=== PATIENT | female | born 1975 | race Caucasian/White ===

== ENCOUNTER → 2016-12-21 | Outpatient (CLI) | payer BC ==
[~2016-12-21] MED LIST: BCPILLS PO; BYS/5 PO; DULO60CA44 PO
--- NOTE | 2016-12-21 11:12 | DIAGNOSTIC IMAGING REPORT ---
GALLBLADDER-ABD LIMITED HISTORY: 41 years-old Female R10.13 Epigastric painLeft message with appt date and time. 10/ acute epigastric abdominal pain. Initial exam. COMPARISON: Ultrasound 03/08/2006, hepatobiliary scan 04/13/2006 TECHNIQUE: Multiple real-time sonographic images of the abdominal right upper quadrant were obtained assessing grayscale appearance and color flow FINDINGS: Pancreas is partially obscured by bowel gas. Imaged portions of the pancreatic parenchyma are unremarkable. Study is also limited secondary to patient body habitus. Unchanged appearance of a hyperechoic ovoid lesion of the right hepatic lobe, 0.9 cm without internal vascularity documented suggesting hemangioma. Liver is otherwise unremarkable. No intrahepatic biliary ductal dilation. Gallbladder is partially collapsed with wall measuring 0.3 cm. No shadowing cholelithiasis or pericholecystic fluid collections. Common bile duct measures 0.5 cm, normal. Imaged portions of the right kidney are unremarkable without hydronephrosis. IMPRESSION: 1. Partially collapsed gallbladder lumen without cholelithiasis or sonographic evidence of acute cholecystitis. 2. No biliary ductal dilation. 3. Unchanged appearance of a 0.9 cm round echogenic lesion of the right hepatic lobe suggesting hepatic hemangioma, unchanged in size and appearance from study dated 03/08/2006. The above report was generated using voice recognition software. It may contain grammatical, syntax or spelling errors. Electronically signed by: Olivier Guerin M.D. 12/21/2016 11:11 AM Dictated Date/Time: 12/21/2016 11:07 AM
== END | disposition home or self-care (01) ==
LOC: C.ULTR 10:36
PROVIDERS: ATTEND Physician Assistant Medical
DX: R10.13 Epigastric pain (principal); K82.9 Disease of gallbladder, unspecified; K76.9 Liver disease, unspecified

== ENCOUNTER → 2017-01-04 | Outpatient (CLI) | payer BC ==
[~2017-01-04] MED LIST changes: +SINCALIDE INJ 2.2 MCG in SODIUM CHLORIDE 0.9% 100ML 100 ML IV ONE
--- NOTE | 2017-01-04 12:44 | DIAGNOSTIC IMAGING REPORT ---
HEPATOBILIARY EF IMAGING CLINICAL HISTORY: 41 years-old Female presenting with R10.13 Epigastric pain, EJECTION FRACTION. TECHNIQUE: Dynamic imaging of the gallbladder was initiated 65 minutes after administration of 5.5 mCi of technetium 99m Choletec. Imaging was obtained every 5 minutes over a span of 40 minutes. 2.2 mcg of sincalide was injected 5 minutes prior to the start of imaging. The gallbladder ejection fraction was calculated. COMPARISON: 04/13/2006 and ultrasound from 12/21/2016. FINDINGS: The hepatobiliary scan shows normal normal uptake of radiotracer by the liver with filling of the gallbladder at the start of imaging. Expected excretion of radiotracer into the bowel is appreciable. However, gallbladder ejection fraction measured at 15% (normal greater than 50%). IMPRESSION: 1. Abnormal gallbladder ejection fraction, which suggests chronic cholecystitis. Patent common duct. Electronically signed by: Madhu Wang M.D. 01/04/2017 12:43 PM Dictated Date/Time: 01/04/2017 12:39 PM
== END | disposition home or self-care (01) ==
LOC: C.NUCL 10:12
PROVIDERS: ATTEND Physician Assistant Medical
DX: R10.13 Epigastric pain (principal); R93.2 Abnormal findings on diagnostic imaging of liver and biliary tract

== ENCOUNTER → 2017-02-04 | Day surgery (SDC) | payer BC ==
[2017-01-26 10:48] VITALS: BMI 49.0
--- NOTE | 2017-01-26 11:18 | PAT Medication Instructions ---
Service Date Jan 26, 2017. Current Home Medication List Acetaminophen (Tylenol), 1,000 MG PO PRN Adapalene (Differin), 1 APPLN TOP 2-3X WEEK Control Pills ( Control Pills), 1 TAB PO QAM Hmycokymty-Mvxnbattjuaoq-Nojkn (Butalbital/APAP/Caffeine 50-300-40 mg), 1 TAB PO PRN Cetirizine (Zyrtec), 10 MG PO QAM Cyclobenzaprine Hcl (Flexeril), 5 MG PO HS PRN for RN Famotidine (Pepcid), 20 MG PO QAM Lorazepam (Ativan), 0.5 MG PO PRN Multivitamin (Multivitamin), 1 TAB PO QAM Nebivolol Hcl (Bystolic), 5 MG PO HS Rizatriptan Benzoate (Maxalt), 10 MG PO UD PRN for RN Tramadol (Ultram), 50 MG PO Q8H PRN for Pain Triamcinolone Acetonide (Nasal (Nasacort Allergy 24Hr), 1 SPRAYS INTNAS HS Vortioxetine HBr (Trintellix), 10 MG PO QAM Medication Instructions For Your Scheduled Surgery - Hold the following medications 24 hours prior to surgery: Adapalene (Differin), 1 APPLN TOP 2-3X WEEK - Hold the following medications the morning of surgery: Cetirizine (Zyrtec), 10 MG PO QAM Multivitamin (Multivitamin), 1 TAB PO QAM Cyclobenzaprine Hcl (Flexeril), 5 MG PO HS PRN for RN Clnplxoowg-Cfrolytcmmuef-Cgbrc (Butalbital/APAP/Caffeine 50-300-40 mg), 1 TAB PO PRN - Take the following medications the morning of surgery with a sip of water: Control Pills ( Control Pills), 1 TAB PO QAM Vortioxetine HBr (Trintellix), 10 MG PO QAM Tramadol (Ultram), 50 MG PO Q8H PRN for Pain (if needed) Famotidine (Pepcid), 20 MG PO QAM Rizatriptan Benzoate (Maxalt), 10 MG PO UD PRN for RN (if needed) Lorazepam (Ativan), 0.5 MG PO PRN (if needed) Acetaminophen (Tylenol), 1,000 MG PO PRN (if needed, can be taken up to four hours before surgery) - Take the following medications as scheduled the night before surgery: Nebivolol Hcl (Bystolic), 5 MG PO HS Triamcinolone Acetonide (Nasal (Nasacort Allergy 24Hr), 1 SPRAYS INTNAS HS Tramadol (Ultram), 50 MG PO Q8H PRN for Pain (if needed) Rizatriptan Benzoate (Maxalt), 10 MG PO UD PRN for RN (if needed) Cyclobenzaprine Hcl (Flexeril), 5 MG PO HS PRN for RN (if needed) Lorazepam (Ativan), 0.5 MG PO PRN (if needed) Acetaminophen (Tylenol), 1,000 MG PO PRN (if needed) If you have any questions please call us at [phone] or [phone] or [phone]
[2017-01-26 12:28] LABS: BASO % 0.4 %; BASO ABS # 0.02 K/uL (0-0.2); COMPLETE YES; EOS % 1.1 %; HEMATOCRIT 41.2 % (37-47); IG% 0.2 %; LYMPH % 31.8 %; LYMPH ABS # 1.75 K/uL (1.2-3.4); MEAN CELL VOLUME 88.8 fL (80-100); MEAN CORPUSCULAR HEMOGLOBIN 30.6 pg (25-34); MEAN CORPUSCULAR HGB CONC 34.5 g/dl (32-36); MEAN PLATELET VOLUME 11.7 fL (7.4-10.4); MONO % 7.4 %; NEUT % 59.1 %; PLATELET COUNT 173 K/uL (130-400); RED BLOOD COUNT 4.64 M/uL (4.2-5.4); WHITE BLOOD COUNT 5.51 K/uL (4.8-10.8)
[2017-01-26 12:32] LABS: BUN/CREATININE RATIO 15.1 (10-20); CALCIUM 8.7 mg/dl (8.5-10.1); CREATININE 0.98 mg/dl (0.60-1.20); POTASSIUM 3.8 mmol/L (3.5-5.1)
[~2017-02-04] VITALS: Ht 157.5 cm; Wt 121.5 kg
[~2017-02-04] MED LIST changes: +ACET-1256 PO; +ADAP0.1G8 TOP; +ATROPINE SULFATE 0.1 MG/ML 5ML SYR IV PRN; +BUPIVACAINE 0.5 % 5 MG/1 ML MPF 30ML VIAL ONE; +BUTA1CAP20 PO; -BYS/5 PO; +CETI10TA84 PO; +CLINDAMYCIN IV 900 MG in DEXTROSE 5% 50ML IV SCH; +CYCL5TAB PO; +DEXAMETHASONE SOD INJ 4 MG/ML VIAL ONE; -DULO60CA44 PO; +EpHEDrine SULFATE INJ 50 MG/ML AMP IV PRN; +FAMO20TA11 PO; +FENTANYL CITRATE INJ 50 MCG/1 ML 2 ML VIAL ONE; +GLYCOPYRROLATE INJ 0.2 MG/ML VIAL ONE; +KETOROLAC TROMETHAMINE 30 MG/ML VIAL ONE; +LABETALOL HCL IV 5 MG/ML 20ML IV ONE; +LACTATED RINGER'S 1000ML 1,000 ML IV SCH; +LARYING-O-JET KIT (LTA) ONE; +LIDOCAINE HCL 2% 2 ML VIAL (20MG/ML) ONE; +LORA-741 PO; +MIDAZOLAM HCL 1 MG/ML 2ML VIAL ONE; +MULT-506 PO; +NEBI10TA2 PO; +NEOSTIGMINE METHYLSULFATE 5 MG/5 ML SYR ONE; +ONDA4TAB46 PO; +ONDANSETRON INJ 2 MG/ML 2 ML VIAL IV PRN; +ONDANSETRON INJ 2 MG/ML 2 ML VIAL ONE; +OXYC-57 PO; +OXYCODONE/ACETAMINOPHEN 5-325 TAB PO PRN; +PROMETHAZINE HCL INJ 12.5 MG in SODIUM CHLORIDE 0.9% 50ML 50 ML IV PRN; +PROPOFOL IV EMULSION 10 MG/ML 20 ML VIAL IV ONE; +RIZA10TA18 PO; +ROCURONIUM BROMIDE 10 MG/ML 5 ML VIAL IV ONE; -SINCALIDE INJ 2.2 MCG in SODIUM CHLORIDE 0.9% 100ML 100 ML IV ONE; +SODIUM CHLORIDE 0.9% 1000ML 1,000 ML IV SCH; +TRAM-10 PO; +TRIA1SPR4 INTNAS; +VORT10TA12 PO
[2017-02-04 07:30] VITALS: BP 123/83; PULSE 69; TEMP 36.8; O2SAT 97; Ht 157.5 cm; Wt 121.5 kg
--- NOTE | 2017-02-04 08:21 | History & Physical Bridge Note ---
H&P Re-Evaluation Bridge Note: I have examined the patient, reviewed the History & Physical and in the interval since the performance of the History & Physical I have noted the following changes of clinical significance: No changes noted
--- NOTE | 2017-02-04 09:28 | [facility] Post Operative Brief Note ---
Immediate Operative Summary Operative Date Feb 04, 2017. Pre-Operative Diagnosis biliary dyskinesia Post-Operative Diagnosis biliary dyskinesia Procedure(s) Performed Laparoscopic Cholecystectomy Surgeon Dr. Singh Boateng Card Game Operator Surgeon(s) Susan Wilde PA-C Estimated Blood Loss 4ml Findings Window of safety obtained, cystic duct and artery doubly clipped and divided. Specimens Permanent Solution: A. Gallbladder Drains None Anesthesia GETA Complication(s) None Disposition Recovery Room / PACU
--- NOTE | 2017-02-04 09:31 | [facility] Operative Report ---
Operative Report Operative Date Feb 04, 2017. Pre-Operative Diagnosis biliary dyskinesia Post-Operative Diagnosis biliary dyskinesia Procedure(s) Performed Laparoscopic cholecystectomy Surgeon Dr. Singh Boateng [employer] Teacher Surgeon(s) Susan Wilde PA-C Estimated Blood Loss 4ml Findings Window of safety obtained, cystic duct and artery doubly clipped and divided. Specimens Permanent Solution: A. Gallbladder Drains None Anesthesia GETA Complication(s) None Disposition Recovery Room / PACU Indications 41-year-old female with biliary dyskinesia, plan for laparoscopic cholecystectomy with possible cholangiogram. The risks of the procedure were discussed, all questions were answered, and the patient agreed to proceed with surgery as planned. Description of Procedure The patient was properly identified, consented, and taken to the operating room where she was placed in the supine position. General endotracheal anesthesia was induced. SCDs and a safety belt were placed. Preoperative antibiotics were administered. The patient's abdomen was prepped and draped in the standard sterile fashion. A surgical timeout was performed and all parties were in agreement that this was the correct patient and procedure to be performed and we continued as planned. An incision was made superior and to the left of the umbilicus overlying the rectus muscle and the Veress needle was inserted. Saline drop test confirmed entry into the peritoneum. The abdomen was insufflated with carbon dioxide which the patient tolerated without incident. The abdomen was then entered using the Optiview technique and a 5 mm trocar. The laparoscope was inserted and no damage from initial trocar or Veress needle placement was noted, no gross abnormalities were noted within the 4 quadrants of the abdomen. An 11 mm port was placed in the subxiphoid position and two 5 mm ports were then placed in the right subcostal position. The patient was placed in reverse Trendelenburg position and rotated towards the left. The dome of the gallbladder was retracted towards the left upper quadrant and the infundibulum was retracted toward the right lower quadrant revealing Calot' s triangle. Peritoneal attachments were taken down with electrocautery and blunt dissection. The cystic duct and artery were circumferentially dissected. A window of safety was obtained showing the cystic duct entering the gallbladder with no aberrant structures noted. The cystic duct and artery were doubly clipped and divided. The gallbladder was then lifted off the gallbladder fossa with electrocautery. The gallbladder was placed in an Endo Catch bag and removed through the umbilical port site. The right upper quadrant was irrigated and hemostasis was found to be good. 5 mm trochars were removed under direct visualization and the abdomen was allowed to collapse. The wound was irrigated, and the skin of all ports was closed with 4-0 Monocryl subcuticular sutures. Dermabond was placed over the wounds. The physician's librarian assistant was critical and entry into the abdomen, exposure, retraction, removal of the gallbladder, and closure. The patient was extubated in the operating room and taken to the PACU where she recovered without apparent incident. All sponge, instrument and needle counts were correct at the conclusion of the procedure. The patient tolerated the procedure well. I attest to the content of the Intraoperative Record and any orders documented therein. Any exceptions are noted below.
[2017-02-04] MEDS: FENTANYL CITRATE INJ 50 MCG/1 ML 2 ML VIAL IV PRN ×5 (09:56→10:11)
--- NOTE | 2017-02-04 09:58 | Discharge Instructions ---
Discharge Instructions Date of Service Feb 04, 2017. Admission Reason for Admission: Biliary Dyskinesia Discharge Discharge Diagnosis / Problem: Biliary Dyskinesia Discharge Goals Goal(s): Decrease discomfort, Improve function Activity Recommendations Activity Limitations: as noted below Lifting Limitations: no more than 10 pounds Exercise/Sports Limitations: until after follow-up appointment May Resume Sexual Activity: after follow-up appointment Shower/Bathe: tomorrow Driving or Machine Use: resume 1 day after discharge . Instructions / Follow-Up Instructions / Follow-Up Please follow-up with Dr. Boateng in the General Surgery office in 1-2 weeks. Please call the office at [phone] to make a follow-up appointment if you do not have one already. Please call the office with any questions or concerns. Current Hospital Diet Patient's current hospital diet: Discharge Diet Recommended Diet: Regular Diet Procedures Procedures Performed: Laparoscopic Cholecystectomy Pending Studies Studies pending at discharge: yes List of pending studies: Pathology report. Medical Emergencies . Who to Call and When: Medical Emergencies: If at any time you feel your situation is an emergency, please call 911 immediately. . Non-Emergent Contact Non-Emergency issues call your: Primary Care Provider, Surgeon Call Non-Emergent contact if: temperature is above 101.5, your pain is not controlled, wound has increased drainage, wound has increased redness . "Provider Documentation" section prepared by Susan Wilde. . VTE Core Measure Inpt VTE Proph given/why not?: SCD's [place] Drug Monitoring Program Search Results: patient reviewed within database, no issues identified
[2017-02-04] MEDS: HYDROmorphone INJ 1 MG/ML SYR IV PRN ×2 (10:15→10:22)
[2017-02-04 10:45] VITALS: BP 128/79; PULSE 92; TEMP 36.3; O2SAT 100
--- NOTE | 2017-02-04 10:47 | Anesthesiology Progress Note ---
Anesthesia Post Op Note Date & Time Feb 04, 2017 at 10:47 Vital Signs Pain Intensity: 4 Vital Signs Past 12 Hours Date Time Temp Pulse Resp B/P (MAP) Pulse Ox O2 Delivery O2 Flow Rate FiO2 02/04/17 10:40 36.3 56 12 131/77 99 Nasal Cannula 2 02/04/17 10:30 56 15 128/81 97 Nasal Cannula 2 02/04/17 10:20 54 18 145/86 100 Nasal Cannula 2 02/04/17 10:10 44 24 137/75 99 Nasal Cannula 2 02/04/17 10:00 59 12 142/109 100 Oxymask 10 02/04/17 09:50 67 18 133/95 100 Oxymask 10 02/04/17 09:44 36.4 73 16 157/108 96 Oxymask 10 02/04/17 07:30 36.8 69 18 123/83 (96) 97 Room Air Notes Mental Status: alert / awake / arousable, participated in evaluation Pt Amnestic to Procedure: Yes Nausea / Vomiting: adequately controlled Pain: adequately controlled Airway Patency, RR, SpO2: stable & adequate BP & HR: stable & adequate Hydration State: stable & adequate Anesthetic Complications: no major complications apparent
[2017-02-04 11:15] VITALS: BP 117/82; PULSE 78; TEMP 36.3; O2SAT 96
[2017-02-04 11:45] VITALS: BP 136/86; PULSE 54; TEMP 36.5; O2SAT 96
== END | disposition home or self-care (01) ==
LOC: C.ACU 06:54
PROVIDERS: ATTEND Surgery
DX: K81.1 Chronic cholecystitis (principal); K82.8 Other specified diseases of gallbladder; E66.9 Obesity, unspecified; I10 Essential (primary) hypertension; E66.01 Morbid (severe) obesity due to excess calories; F32.9 Major depressive disorder, single episode, unspecified; K21.9 Gastro-esophageal reflux disease without esophagitis; E55.9 Vitamin D deficiency, unspecified; Z87.891 Personal history of nicotine dependence; Z80.42 Family history of malignant neoplasm of prostate; Z82.49 Family history of ischemic heart disease and other diseases of the circulatory system

== ENCOUNTER → 2017-02-25 | Outpatient (CLI) | payer BC ==
[~2017-02-25] MED LIST changes: -ATROPINE SULFATE 0.1 MG/ML 5ML SYR IV PRN; -BUPIVACAINE 0.5 % 5 MG/1 ML MPF 30ML VIAL ONE; -CLINDAMYCIN IV 900 MG in DEXTROSE 5% 50ML IV SCH; +COEN30CA8; +DESV50TA PO; -DEXAMETHASONE SOD INJ 4 MG/ML VIAL ONE; -EpHEDrine SULFATE INJ 50 MG/ML AMP IV PRN; -FENTANYL CITRATE INJ 50 MCG/1 ML 2 ML VIAL ONE; +GARL1CAP6; -GLYCOPYRROLATE INJ 0.2 MG/ML VIAL ONE; -KETOROLAC TROMETHAMINE 30 MG/ML VIAL ONE; -LABETALOL HCL IV 5 MG/ML 20ML IV ONE; -LACTATED RINGER'S 1000ML 1,000 ML IV SCH; -LARYING-O-JET KIT (LTA) ONE; -LIDOCAINE HCL 2% 2 ML VIAL (20MG/ML) ONE; -MIDAZOLAM HCL 1 MG/ML 2ML VIAL ONE; -NEOSTIGMINE METHYLSULFATE 5 MG/5 ML SYR ONE; -ONDANSETRON INJ 2 MG/ML 2 ML VIAL IV PRN; -ONDANSETRON INJ 2 MG/ML 2 ML VIAL ONE; -OXYC-57 PO; -OXYCODONE/ACETAMINOPHEN 5-325 TAB PO PRN; +PRLSR20 PO; -PROMETHAZINE HCL INJ 12.5 MG in SODIUM CHLORIDE 0.9% 50ML 50 ML IV PRN; -PROPOFOL IV EMULSION 10 MG/ML 20 ML VIAL IV ONE; -ROCURONIUM BROMIDE 10 MG/ML 5 ML VIAL IV ONE; -SODIUM CHLORIDE 0.9% 1000ML 1,000 ML IV SCH; +TRIATAB3 PO
[2017-02-25 17:06] LABS: BASO % 0.4 %; BASO ABS # 0.03 K/uL (0-0.2); EOS % 0.6 %; EOS ABS # 0.04 K/uL (0-0.5); HEMATOCRIT 44.5 % (37-47); HEMOGLOBIN 15.3 g/dL (12.0-16.0); IG# 0.01 K/uL (0.00-0.02); LYMPH % 25.3 %; LYMPH ABS # 1.69 K/uL (1.2-3.4); MEAN CELL VOLUME 89.2 fL (80-100); MEAN CORPUSCULAR HEMOGLOBIN 30.7 pg (25-34); MEAN CORPUSCULAR HGB CONC 34.4 g/dl (32-36); MEAN PLATELET VOLUME 12.5 fL (7.4-10.4); MONO % 7.9 %; MONO ABS # 0.53 K/uL (0.11-0.59); NEUT % 65.7 %; NEUT ABS # 4.38 K/uL (1.4-6.5); PLATELET COUNT 202 K/uL (130-400); RED CELL DISTRIBUTION WIDTH CV 12.7 % (11.5-14.5); RED CELL DISTRIBUTION WIDTH SD 40.8 fL (36.4-46.3); WHITE BLOOD COUNT 6.68 K/uL (4.8-10.8)
[2017-02-25 18:51] LABS: ALBUMIN 3.8 gm/dl (3.4-5.0); ALT/SGPT 65 U/L (12-78); AST/SGOT 32 U/L (15-37); BLOOD UREA NITROGEN 12 mg/dl (7-18); CALCIUM 9.3 mg/dl (8.5-10.1); CARBON DIOXIDE 24 mmol/L (21-32); CREATININE 1.08 mg/dl (0.60-1.20); GLUCOSE 85 mg/dl (70-99); POTASSIUM 4.2 mmol/L (3.5-5.1); SODIUM 136 mmol/L (136-145)
[2017-02-25 19:02] LABS: ALKALINE PHOSPHATASE 70 U/L (45-117)
== END | disposition home or self-care (01) ==
LOC: C.LABBFT 13:15
PROVIDERS: ATTEND Internal Medicine
DX: Z98.890 Other specified postprocedural states (principal); I10 Essential (primary) hypertension

== ENCOUNTER → 2017-04-16 | Outpatient (CLI) | payer BC ==
[~2017-04-16] MED LIST changes: -COEN30CA8; -DESV50TA PO; -GARL1CAP6; -PRLSR20 PO; -TRIATAB3 PO
--- NOTE | 2017-04-19 08:08 | MAMMOGRAPHY REPORT ---
BILATERAL DIGITAL SCREENING MAMMOGRAM TOMOSYNTHESIS WITH CAD: 04/16/2017 CLINICAL HISTORY: Routine screening. Patient has no complaints. TECHNIQUE: Breast tomosynthesis in addition to standard 2D mammography was performed. Current study was also evaluated with a Computer Aided Detection (CAD) system. COMPARISON: Comparison is made to exams dated: 04/26/2015 mammogram, 04/02/2014 ultrasound, 04/02/2014 zayra mogram, 03/23/2014 mammogram, 10/13/2011 ultrasound, and 10/13/2011 mammogram - [facility]ter. BREAST COMPOSITION: The tissue of both breasts is almost entirely fatty. FINDINGS: There is stable focal asymmetry in the left upper outer quadrant, and a stable benign circu mscribed mass in the 6:00 right breast. No suspicious mass, architectural distortion or cluster of m icrocalcifications is seen. IMPRESSION: ACR BI-RADS CATEGORY 1: NEGATIVE There is no mammographic evidence of malignancy. A 1 year screening mammogram is recommended. The pa tient will receive written notification of the results. Approximately 10% of breast cancers are not detected with mammography. A negative mammographic report should not delay biopsy if a clinically suggestive mass is present. Deb Hastings M.D. ay/:04/16/2017 16:59:26 Paleobotanist: Emily DICKSON)(M), [facility] letter sent: Normal 1/2 BI-RADS Code: ACR BI-RADS Category 1: Negative
== END | disposition home or self-care (01) ==
LOC: C.MAMM 13:40
PROVIDERS: ATTEND Internal Medicine
DX: Z12.31 Encounter for screening mammogram for malignant neoplasm of breast (principal)

== ENCOUNTER → 2017-04-20 | Outpatient (CLI) | payer BC | END | disposition home or self-care (01) | LOC: C.LABSPEC 12:56 | PROVIDERS: ATTEND Internal Medicine | DX: R19.7 Diarrhea, unspecified (principal) ==

== ENCOUNTER → 2017-05-13 | Outpatient (CLI) | payer BC | END | disposition home or self-care (01) | LOC: C.LABBFT 12:01 | PROVIDERS: ATTEND Physician Assistant Medical | DX: R30.0 Dysuria (principal) ==

== ENCOUNTER → 2017-05-17 | Outpatient (CLI) | payer BC | END | disposition home or self-care (01) | LOC: C.LAB 16:59 | PROVIDERS: ATTEND Physician Assistant Medical | DX: R39.15 Urgency of urination (principal) ==

== ENCOUNTER → 2017-05-18 | Outpatient (CLI) | payer BC | END | disposition home or self-care (01) | LOC: C.PAPS 13:54 | PROVIDERS: ATTEND Obstetrics & Gynecology | DX: Z01.419 Encounter for gynecological examination (general) (routine) without abnormal findings (principal) ==

== ENCOUNTER → 2017-06-01 | Outpatient (CLI) | payer BC ==
[2017-06-01 17:00] LABS: BLOOD UREA NITROGEN 13 mg/dl (7-18); CALCIUM 9.4 mg/dl (8.5-10.1); CARBON DIOXIDE 30 mmol/L (21-32); CREATININE 1.13 mg/dl (0.60-1.20); GLUCOSE 108 mg/dl (70-99); POTASSIUM 3.4 mmol/L (3.5-5.1); SODIUM 137 mmol/L (136-145)
== END | disposition home or self-care (01) ==
LOC: C.LABBFT 14:02
PROVIDERS: ATTEND Physician Assistant Medical
DX: I10 Essential (primary) hypertension (principal)

== ENCOUNTER → 2017-07-01 | Outpatient (CLI) | payer BC ==
[2017-07-01 16:52] LABS: BLOOD UREA NITROGEN 10 mg/dl (7-18); CALCIUM 8.8 mg/dl (8.5-10.1); CARBON DIOXIDE 29 mmol/L (21-32); CREATININE 0.94 mg/dl (0.60-1.20); GLUCOSE 79 mg/dl (70-99); POTASSIUM 3.2 mmol/L (3.5-5.1); SODIUM 139 mmol/L (136-145)
== END | disposition home or self-care (01) ==
LOC: C.LABBFT 13:54
PROVIDERS: ATTEND Physician Assistant Medical
DX: E87.6 Hypokalemia (principal)

== ENCOUNTER 2023-03-24 19:03 | Inpatient (IN) ==
[2023-03-24] MEDS ORDERED: OPTIRAY 320 500ml IV ONE (20:39)
--- NOTE | 2023-03-24 21:36 | CT Scan Report ---
Exam(s): CT ABDOMEN + PELVIS With Contrast IV Amt: 84 ml optiray 320 EXAM: CT Abdomen and Pelvis With Intravenous Contrast CLINICAL HISTORY: Upper abdomen pain. TECHNIQUE: Axial computed tomography images of the abdomen and pelvis with intravenous contrast. CTDI is 27.74 mGy and DLP is 1214.85 mGy-cm. Automated exposure control was utilized for the study. A dose lowering technique was utilized adhering to the principles of ALARA. CONTRAST: Patient received 84 ml optiray 320 of IV contrast COMPARISON: No relevant prior studies available. FINDINGS: Lung bases: Unremarkable. No mass. No consolidation. ABDOMEN: Liver: Unremarkable. No mass. Gallbladder and bile ducts: Cholecystectomy. No ductal dilation. Pancreas: There is an ill-defined 3.1 x 7.1 x 3.6 cm pancreatic body mass. No ductal dilation. Spleen: Unremarkable. No splenomegaly. Adrenals: Unremarkable. No mass. Kidneys and ureters: Unremarkable. No solid mass. No hydronephrosis. Stomach and bowel: Unremarkable. No obstruction. No mucosal thickening. PELVIS: Appendix: Normal appendix. Bladder: Unremarkable. No mass. Reproductive: Unremarkable as visualized. ABDOMEN and PELVIS: Intraperitoneal space: Unremarkable. No free air. No significant fluid collection. Bones/joints: There are degenerative changes of the spine. No acute fracture. No dislocation. Soft tissues: Unremarkable. Vasculature: Mild atherosclerosis. No abdominal aortic aneurysm. Lymph nodes: Unremarkable. No enlarged lymph nodes. IMPRESSION: There is an ill-defined 3.1 x 7.1 x 3.6 cm pancreatic body mass. While this could represent acute pancreatitis, underlying malignancy is highly suspected and needs to be excluded. Electronically signed by: Cecelia Sheridan MD 03/24/23 21:35 PM
--- NOTE | 2023-03-24 21:48 | Emergency Department Note ---
Impression & Plan Recurrent upper abdominal pain, Mass of pancreas, Elevated amylase and lipase ED Provider Note Provider: Elio Brown MD DATE OF SERVICE: 03/24/2023 CHIEF COMPLAINT: Upper abdominal pain HISTORY OF PRESENT ILLNESS: Patient is a 47-year-old female past medical history of migraines, reflux and endometriosis presenting here stating she had some intermittent upper abdominal pain for the last several weeks although denies increased. Had some blood work earlier today. Denies any vomiting or diarrhea. No trauma reported. Prior hysterectomy. Has tried famotidine and Nexium and Gaviscon without real improvement of abdominal discomfort. Again worsened today. Some nausea at times. Has lost weight working with the weight loss clinic over the past year about 30 pounds. No fevers. Denies any chest pain. PAST MEDICAL HISTORY: As noted above MEDICATIONS: Reviewed home medication list SOCIAL HISTORY: Non-smoker PHYSICAL EXAM: GENERAL: alert and oriented in no acute distress on stretcher fatigued and appears Head: normocephalic and atraumatic EYES: No injection, discharge or icterus. NECK: Trachea midline. ENT: Mucous membranes pink and moist. LUNGS: Airway patent. No retractions or tachypnea HEART: Regular rate and rhythm. No chest wall tenderness ABDOMEN: Soft with some slight upper abdominal tenderness. No Marquez sign. SKIN: Acyanotic, warm, dry, without rashes EXTREMITIES: Without swelling, tenderness or deformity NEUROLOGICAL: No focal deficits. No aphasia. No facial droop or slurred speech. EK beats. Normal sinus rhythm. No PVC or PAC. No acute ST segment elevation or depression with QTc 428 Patient's laboratory studies and imaging reviewed. Differential includes Appendicitis, ovarian cyst, ovarian torsion, ectopic , TOA, PID, infections, diverticulitis, UTI, obstruction, mesenteric ischemia, aortic pathology, inflammatory bowel disease, renal colic, PUD, pancreatitis, biliary pathology, hernia, volvulus, constipation, as well as other pathologies. IMPRESSION/MEDICAL DECISION MAKING: Presents with some mid upper abdominal discomfort. Blood work obtained here as well as EKG. Seems less likely be cardiac in nature. Blood work from earlier today Without significant leukocytosis or anemia. No evidence of significant electrolyte abnormality with some very mild hypokalemia 3.2. No signs of renal dysfunction. Lipase and amylase elevated. Will obtain LFTs and troponin for completeness however and these are both reassuring. CT scan of the abdomen pelvis was completed questioning ill-defined pancreatic body mass possibly pancreatitis but malignancy needs to be excluded per the radiology report. Given this discussed with the patient staying for further care and evaluation here. Hospitalist team contacted. DIAGNOSIS: Elevated lipase, pancreatic mass DISPOSITION: Hospitalist will evaluate Patient was agreeable with this plan. Past Med/Surg History Medical History (Updated 03/24/23 @ 22:03 by Elio Brown M.D.) Prepatellar bursitis of left knee Right knee DJD Routine gynecological examination Metatarsalgia Chronic pain of both feet Morbid obesity Endometriosis Herniated cervical disc occasional cervicalgia; no ROM limitations per pt Acid reflux occasional HTN (hypertension) Depression Anxiety Migraines Alopecia areata Benign connective tissue neoplasm Surgical History (Updated 07/17/22 @ 07:40 by Truman Marroquin DO) S/P laparoscopic hysterectomy 12/08/[address] Abraham History of ovarian cystectomy History of esophagogastroduodenoscopy (EGD) History of laparoscopy diagnostic- x5 H/O nasal septoplasty H/O tooth extraction Hx laparoscopic cholecystectomy History of cryosurgery Cervix Hx of biopsy Vulvar Family History Father Hypertension Grandfather (Paternal) Family hx of colon cancer Grandfather (Maternal) Prostate cancer Grandmother (Maternal) Hypothyroid Mother Hypothyroid Grandmother (Paternal) Cardiac disorder Myocardial infarction Other Depression Denies family history of Colon cancer Pancreatic cancer Ovarian cancer Breast cancer Bleeding disorder Uterine cancer Social History Smoking Status: Never smoker packs per day: 0.5; Second Hand Exposure: No; Do You Dip or Chew Tobacco: No; Hx Alcohol Use: Yes Alcohol type: wine and hard liquor Hx Substance Use: No Preferred Language: Turkish Communication Ability: Effective Visual Impairment: No Limitations Enrollment Processor Required: No Beliefs That Will Affect Care: None Current Living Situation: Spouse 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 Assistive Devices: None Allergies Allergies Allergy/AdvReac Type Severity Reaction Status Date / Time erythromycin base Allergy Intermediate HIVES,COLIT Verified 03/24/23 22:15 IS amlodipine AdvReac Intermediate TIRED AND Verified 03/24/23 22:15 DISORIENTED cefuroxime AdvReac Intermediate SEVERE Verified 03/24/23 22:15 DIARRHEA hydrochlorothiazide AdvReac Intermediate IMPAIRED Verified 03/24/23 22:15 KIDNEY FUNCTION lisinopril AdvReac Intermediate FATIGUE Verified 03/24/23 22:15 losartan AdvReac Intermediate TIRED AND Verified 03/24/23 22:15 COULDN'T FUNCTION triamterene AdvReac Intermediate FATIGUE Verified 03/24/23 22:15 Home Meds Home Medications Medication Instructions Recorded Confirmed coenzyme Q10 100 mg capsule 100 mg PO QAM 09/19/18 03/24/23 lorazepam 0.5 mg tablet 0.5 mg PO DAILY PRN anxiety 09/19/18 03/24/23 triamcinolone acetonide 55 mcg 1 spray intranasal PM 09/27/18 03/24/23 nasal spray aerosol (Nasacort) desvenlafaxine 100 mg 100 mg PO PM 02/12/20 03/24/23 tablet,extended release 24 hr cetirizine 10 mg tablet (Zyrtec) 10 mg PO HS 11/14/21 03/24/23 vitamin B complex [B PO 04/16/22 03/17/23 Complex-Vitamin B12] famotidine 20 mg tablet 20 mg PO QAM PRN 03/17/23 03/24/23 HEARTBURN/INDIGESTION phentermine 37.5 mg tablet 18.75 mg PO DAILY 03/24/23 03/24/23 ubrogepant 50 mg tablet (Ubrelvy) 50 mg PO PRN PRN Migraine Headache 03/24/23 03/24/23 Previous Rx's Medication Instructions Recorded carvedilol 12.5 mg tablet 12.5 mg PO BID #180 tabs 09/08/22 chlorthalidone 25 mg tablet 12.5 mg (1/2 x 25 mg) PO DAILY 90 09/08/22 days #45 tabs metronidazole 1 % topical gel 1 applic topical DAILY #60 grams 09/08/22 (Metrogel) fremanezumab-vfrm 225 mg/1.5 mL 225 mg (1.5 mL) subcut MONTHLY 30 10/14/22 subcutaneous auto-injector (Ajovy) days #45 mL potassium chloride 10 mEq 20 meq (2 x 10 mEq) PO BID Other 03/12/23 capsule,extended release #120 caps esomeprazole magnesium 40 mg 40 mg PO BID #60 caps 03/15/23 capsule,delayed release doxycycline hyclate 50 mg capsule 50 mg PO BID #60 caps 03/17/23 Results & Data (ED) Vital Signs Vital Signs - 24 hr 03/24/23 19:06 03/24/23 21:23 03/24/23 21:52 Temperature 37.0 C Temperature Source Temporal Artery Scan Pulse Rate 81 61 Pulse Rate [Right Finger] 68 Respiratory Rate 18 19 Respiratory Effort / Characteristics Non-Labored Spontaneous Non-Labored Spontaneous Respiratory Depth Normal Normal Respiratory Pattern Regular Blood Pressure 172/112 H Blood Pressure [Right Arm] 150/104 H Blood Pressure Mean 132 Blood Pressure Mean [Right Arm] 119 Blood Pressure Position Sitting Pulse Oximetry 99 97 Oxygen Delivery Method Room Air Room Air Sepsis Recent Fever Within 48 Hours No Sepsis New/Unexplained Change in Mental Status N/A Sepsis Action Taken by Nursing No Action Required 03/24/23 22:08 Temperature Temperature Source Pulse Rate Pulse Rate [Right Finger] Respiratory Rate Respiratory Effort / Characteristics Respiratory Depth Respiratory Pattern Blood Pressure Blood Pressure [Right Arm] Blood Pressure Mean Blood Pressure Mean [Right Arm] Blood Pressure Position Pulse Oximetry 98 Oxygen Delivery Method Room Air Sepsis Recent Fever Within 48 Hours Sepsis New/Unexplained Change in Mental Status Sepsis Action Taken by Nursing Laboratory Data Lab Results 03/24/23 03/24/23 Range/Units 20:04 22:08 Total Bilirubin 0.4 (0.2-1.0) mg/dl Direct Bilirubin 0.2 (0-0.2) mg/dl AST 17 (13-39) U/L ALT 13 (7-52) U/L Alkaline Phosphatase 68 (34-104) U/L Troponin I High Sens 2.9 (0-14) pg/ml Total Protein 7.3 (6.0-8.3) gm/dl Albumin 4.1 (3.4-5.0) gm/dl Urine Color Yellow Urine Appearance Clear (Clear) Urine pH 6.0 (4.5-7.5) Ur Specific [place] > 1.045 H (1.000-1.030) Urine Protein Negative (Negative) Urine Glucose (UA) Negative (Negative) Urine Ketones Negative (Negative) Urine Blood Negative (Negative) Urine Nitrite Negative (Negative) Urine Bilirubin Negative (Negative) Urine Urobilinogen Negative (Negative) Ur Leukocyte Esterase Negative (Negative) Administered Medications Sodium Chloride (Nss) 1,000 mls @ 999 mls/hr IV .Q1H1M ONE Stop: 03/24/23 22:56 Last Admin: 03/24/23 22:04 Dose: 999 mls/hr Documented By: LIZZETTE Discontinued Medications Ioversol (Optiray 320 500ml) 84 ml IV ONCE ONE Stop: 03/24/23 20:40 Last Admin: 03/24/23 20:39 Dose: 84 ml Documented By: RASHEED Morphine Sulfate (Morphine Sulfate 4 Mg/Ml 1 Ml Carp\\Vial) 4 mg IV NOW STA Stop: 03/24/23 21:57 Last Admin: 03/24/23 22:05 Dose: 4 mg Documented By: LIZZETTE Ondansetron HCl (Ondansetron Inj 2 Mg/Ml 2 Ml Vial) 4 mg IV NOW STA Stop: 03/24/23 21:57 Last Admin: 03/24/23 22:05 Dose: 4 mg Documented By: LIZZETTE Imaging Data Radiologist's Impression: Abdomen/Pelvis CT 03/24/23 20:23 Exam(s): CT ABDOMEN + PELVIS With Contrast IV Amt: 84 ml optiray 320 EXAM: CT Abdomen and Pelvis With Intravenous Contrast CLINICAL HISTORY: Upper abdomen pain. TECHNIQUE: Axial computed tomography images of the abdomen and pelvis with intravenous contrast. CTDI is 27.74 mGy and DLP is 1214.85 mGy-cm. Automated exposure control was utilized for the study. A dose lowering technique was utilized adhering to the principles of ALARA. CONTRAST: Patient received 84 ml optiray 320 of IV contrast COMPARISON: No relevant prior studies available. FINDINGS: Lung bases: Unremarkable. No mass. No consolidation. ABDOMEN: Liver: Unremarkable. No mass. Gallbladder and bile ducts: Cholecystectomy. No ductal dilation. Pancreas: There is an ill-defined 3.1 x 7.1 x 3.6 cm pancreatic body mass. No ductal dilation. Spleen: Unremarkable. No splenomegaly. Adrenals: Unremarkable. No mass. Kidneys and ureters: Unremarkable. No solid mass. No hydronephrosis. Stomach and bowel: Unremarkable. No obstruction. No mucosal thickening. PELVIS: Appendix: Normal appendix. Bladder: Unremarkable. No mass. Reproductive: Unremarkable as visualized. ABDOMEN and PELVIS: Intraperitoneal space: Unremarkable. No free air. No significant fluid collection. Bones/joints: There are degenerative changes of the spine. No acute fracture. No dislocation. Soft tissues: Unremarkable. Vasculature: Mild atherosclerosis. No abdominal aortic aneurysm. Lymph nodes: Unremarkable. No enlarged lymph nodes. IMPRESSION: There is an ill-defined 3.1 x 7.1 x 3.6 cm pancreatic body mass. While this could represent acute pancreatitis, underlying malignancy is highly suspected and needs to be excluded. Electronically signed by: Cecelia Sheridan MD 03/24/23 21:35 PM Discharge Plan Visit Data Chief Complaint: Abdominal Pain Stated Complaint: SEVERE STOMACHE PAIN ED Provider: Elio Brown Discharge Problem: Recurrent upper abdominal pain, Mass of pancreas, Elevated amylase and lipase Patient Disposition: Being Evaluated by Hospitalist Forms Stand Alone Forms: My [facility] Prescriptions Prescriptions: No Action Ajovy Autoinjector 225 mg/1.5 mL auto-injector 225 mg subcut MONTHLY 30 Days Qty: 45 11RF potassium chloride 10 mEq capsule, extended release 20 meq PO BID Qty: 120 1RF doxycycline hyclate 50 mg capsule 50 mg PO BID Qty: 60 0RF metronidazole [Metrogel] 1 % gel 1 applic topical DAILY Qty: 60 1RF carvedilol 12.5 mg tablet 12.5 mg PO BID Qty: 180 3RF Rx Instructions: must administer with a meal/food chlorthalidone 25 mg tablet 12.5 mg PO DAILY 90 Days Qty: 45 3RF desvenlafaxine 100 mg tablet extended release 24 hr 100 mg PO PM vitamin B complex [B Complex-Vitamin B12] PO esomeprazole magnesium 40 mg capsule,delayed release(DR/EC) 40 mg PO BID Qty: 60 0RF coenzyme Q10 100 mg capsule 100 mg PO QAM Patient Comments: PO Take as directed; Rx Instructions: PER PT "NOT REGULARLY" lorazepam 0.5 mg tablet 0.5 mg PO DAILY PRN (Reason: anxiety) Patient Comments: 0.5 mg PO Take one tablet every 6 hours PRN; triamcinolone acetonide [Nasacort] 55 mcg Aerosol,[place] 1 spray INTRANASAL PM cetirizine [Zyrtec] 10 mg Tablet 10 mg PO HS famotidine 20 mg tablet 20 mg PO QAM PRN (Reason: HEARTBURN/INDIGESTION) phentermine 37.5 mg tablet 18.75 mg PO DAILY Ubrelvy 50 mg tablet 50 mg PO PRN PRN (Reason: Migraine Headache) Rx Instructions: 1 tab po at the onset of a migraine. May repeat x 1 tab 2 hrs later if needed. No more than 2 tabs in 24 hrs. Referrals Referrals: Truman Marroquin DO [Primary Care Provider] -
[2023-03-24] MEDS ORDERED: SODIUM CHLORIDE 0.9% 1,000 ML IV ONE (21:56)
[2023-03-24] MEDS ORDERED: MoRPHine SULFATE 4 MG/ML 1 ML CARP\\VIAL IV STA (21:56)
[2023-03-24] MEDS ORDERED: ONDANSETRON INJ 2 MG/ML 2 ML VIAL IV STA (21:56)
[2023-03-24 22:07] LABS: Albumin Level 4.1 gm/dl (3.4-5.0); Bilirubin Direct 0.2 mg/dl (0-0.2); Bilirubin,Total 0.4 mg/dl (0.2-1.0); Total Protein 7.3 gm/dl (6.0-8.3)
[2023-03-24 22:14] LABS: Troponin I High Sensitivity 2.9 pg/ml (0-14)
[2023-03-24 22:14] LABS: Appearance Urine Clear (Clear); Bilirubin Urine Negative (Negative); Blood Urine Negative (Negative); Color Urine Yellow; Glucose Urine UA Negative (Negative); Ketones Urine Negative (Negative); Leukocyte Esterase Urine Negative (Negative); Nitrite Urine Negative (Negative); Protein Urine Negative (Negative); Specific Gravity Urine > 1.045 (1.000-1.030); Urobilinogen Urine Negative (Negative)
--- NOTE | 2023-03-24 22:47 | History & Physical Report ---
Date of Service March 24, 2023 Assessment & Plan (1) Mass of pancreas: Plan: 47yo female presenting with worsening epigastric abdominal pain, post-prandial discomfort and nausea. Found to have elevated Amylase and Lipase. CT of the abdomen as above with ill-defined lesion in the pancreatic head concerning for possible mass/malignancy. LFTs are WNL. Pain is well controlled -Admit to medical -Maintain NPO status -Check CA 19-9 -Repeat BMP, CBC and LFTs in AM -Lipid panel with AM labs -GI consultation appreciated. Will keep patient NPO for possible procedure/ERCP? -Tylenol PRN pain -Morphine PRN pain -Zofran PRN nausea (2) Hypertension: Plan: Chronic. Blood pressure elevated at present -Pain control as above with Tylenol and Morphine -Ativan PRN anxiety -Continue Carvedilol 12.5mg po BID -Hold Chlorthalidone for now - thiazide, could be contributing to possible pancreatitis? -Monitor BP (3) Esophageal reflux: Plan: Chronic. -Protonix 40mg IV daily (4) Anxiety: Plan: Chronic. -Continue Ativan PRN -Desvenlafaxine not on formulary - patient may take hers if she brings it in F/E/N - LR at 125mL/hr x 3 L with KCl 20mEq, monitor electrolytes and replete as needed, NPO for now Ppx - SCDs Code - Full per discussion with patient on admission Dispo -Admit to medical History of Present Illness Chief Complaint: abdominal pain Primary Care Provider: Truman Marroquin DO Kaley Cedeño is a 47yo female with history of GERD, HTN and Obesity presenting with ongoing abdominal pain. Patient reports she has had worsening of her reflux symptoms and post-prandial mid-abdominal pain over the last several weeks. She was taking daily Nexium as well as Pepcid and Gaviscon with minimal relief. She has been seen by her PCP on 03/15/23 with this complaint and her Nexium was increased to 40mg po BID. Acute worsening of her pain over the last three days. Her pain comes in waves. Located in the mid-abdomen and epigastric region. Non-radiating. Some associated nausea but no vomiting. She reports this AM waking with severe epigastric pain which persisted throughout the day. She had a small amount of soup for dinner then developed severe pain which prompted her to come to the ER. She did have outpatient labs performed today which revealed elevation of Lipase to 552 and Amylase to 272 As below, CT of the abdomen with an ill defined 3.1 x 7.1 x 3.6 cm pancreatic body mass concerning for acute pancreatitis vs underlying malignancy. Patient anxious and tearful in the ER having been notified of CT findings. Pain well controlled. No additional complaints at this time. She does endorse a 30# intentional weight loss over the last year with [facility] from [facility] No new medications. No EtOH use. No personal or family history of malignancy. ER Course: Morphine Zofran NSS x 1L Allergies Allergy/AdvReac Type Severity Reaction Status Date / Time erythromycin base Allergy Intermediate HIVES,COLIT Verified 03/24/23 22:15 IS amlodipine AdvReac Intermediate TIRED AND Verified 03/24/23 22:15 DISORIENTED cefuroxime AdvReac Intermediate SEVERE Verified 03/24/23 22:15 DIARRHEA hydrochlorothiazide AdvReac Intermediate IMPAIRED Verified 03/24/23 22:15 KIDNEY FUNCTION lisinopril AdvReac Intermediate FATIGUE Verified 03/24/23 22:15 losartan AdvReac Intermediate TIRED AND Verified 03/24/23 22:15 COULDN'T FUNCTION triamterene AdvReac Intermediate FATIGUE Verified 03/24/23 22:15 Home Medications Medication Instructions Recorded Confirmed Type coenzyme Q10 100 mg capsule 100 mg PO QAM 09/19/18 03/24/23 History lorazepam 0.5 mg tablet 0.5 mg PO DAILY PRN anxiety 09/19/18 03/24/23 History triamcinolone acetonide 55 mcg 1 spray intranasal PM 09/27/18 03/24/23 History nasal spray aerosol (Nasacort) desvenlafaxine 100 mg 100 mg PO PM 02/12/20 03/24/23 History tablet,extended release 24 hr cetirizine 10 mg tablet (Zyrtec) 10 mg PO HS 11/14/21 03/24/23 History vitamin B complex [B PO 04/16/22 03/17/23 History Complex-Vitamin B12] carvedilol 12.5 mg tablet 12.5 mg PO BID #180 tabs 09/08/22 03/24/23 Rx chlorthalidone 25 mg tablet 12.5 mg (1/2 x 25 mg) PO DAILY 90 09/08/22 03/24/23 Rx days #45 tabs metronidazole 1 % topical gel 1 applic topical DAILY #60 grams 09/08/22 03/24/23 Rx (Metrogel) fremanezumab-vfrm 225 mg/1.5 mL 225 mg (1.5 mL) subcut MONTHLY 30 10/14/22 03/24/23 Rx subcutaneous auto-injector (Ajovy) days #45 mL potassium chloride 10 mEq 20 meq (2 x 10 mEq) PO BID Other 03/12/23 03/24/23 Rx capsule,extended release #120 caps esomeprazole magnesium 40 mg 40 mg PO BID #60 caps 03/15/23 03/24/23 Rx capsule,delayed release doxycycline hyclate 50 mg capsule 50 mg PO BID #60 caps 03/17/23 03/24/23 Rx famotidine 20 mg tablet 20 mg PO QAM PRN 03/17/23 03/24/23 History HEARTBURN/INDIGESTION phentermine 37.5 mg tablet 18.75 mg PO DAILY 03/24/23 03/24/23 History ubrogepant 50 mg tablet (Ubrelvy) 50 mg PO PRN PRN Migraine Headache 03/24/23 03/24/23 History Past Med/Surg History Medical History Prepatellar bursitis of left knee Right knee DJD Routine gynecological examination Metatarsalgia Chronic pain of both feet Morbid obesity Endometriosis Herniated cervical disc occasional cervicalgia; no ROM limitations per pt Acid reflux occasional HTN (hypertension) Depression Anxiety Migraines Alopecia areata Benign connective tissue neoplasm Surgical History S/P laparoscopic hysterectomy 12/08/[address] Abraham History of ovarian cystectomy History of esophagogastroduodenoscopy (EGD) History of laparoscopy diagnostic- x5 H/O nasal septoplasty H/O tooth extraction Hx laparoscopic cholecystectomy History of cryosurgery Cervix Hx of biopsy Vulvar Family History Father Hypertension Grandfather (Paternal) Family hx of colon cancer Grandfather (Maternal) Prostate cancer Grandmother (Maternal) Hypothyroid Mother Hypothyroid Grandmother (Paternal) Cardiac disorder Myocardial infarction Other Depression Denies family history of Colon cancer Pancreatic cancer Ovarian cancer Breast cancer Bleeding disorder Uterine cancer Social History Smoking Status: Never smoker packs per day: 0.5; Second Hand Exposure: No; Do You Dip or Chew Tobacco: No; Hx Alcohol Use: Yes Alcohol type: wine and hard liquor Hx Substance Use: No Preferred Language: Icelandic Communication Ability: Effective Visual Impairment: No Limitations Special Education Kindergarten Teacher Required: No Beliefs That Will Affect Care: None Current Living Situation: Spouse 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 Assistive Devices: None Review of Systems Review of Systems: All systems reviewed & are unremarkable except as noted in HPI & below Physical Exam Physical Exam: General: patient resting comfortably, NAD, non-toxic in appearance, AA&O x 4 Skin: warm, dry, intact, no rashes or lesions HEENT: NC/AT, PERRL, EOMI, anicteric sclera, conjunctiva without injection, external ear normal to inspection and nontender, nares patent, moist mucus membranes, dentition intact, no oropharyngeal lesions, neck supple, trachea midline, no LAD, no thyromegaly, no JVD Heart: +S1/S2, regular, no m/r/g Lungs: equal air entry bilaterally, no rales/rhonchi/wheezes Abd: +BS, soft, ND, epigastric discomfort on palpation, no rebound/guarding, peritonitis, no swelling, no masses/organomegaly/ascites Ext: warm, 2+ pulses in UE/LE bilaterally, no clubbing/cyanosis or edema Neuro: nonfocal, patient AA&O x 4, speech intact, no facial droop, moving all extremities on command with equal strength 5/5 Results & Data Results & Data Vital Signs (Past 12 Hours) Vital Signs Temp Pulse Pulse Resp BP BP Pulse Ox 03/24/23 22:08 98 03/24/23 21:52 61 03/24/23 21:23 68 19 150/104 H 97 03/24/23 19:06 37.0 C 81 18 172/112 H 99 O2 Del Method 03/24/23 22:08 Room Air 03/24/23 21:52 03/24/23 21:23 Room Air 03/24/23 19:06 Room Air Laboratory Results Laboratory Results Total Bilirubin 0.4 mg/dl (0.2-1.0) 03/24/23 20:04 Direct Bilirubin 0.2 mg/dl (0-0.2) 03/24/23 20:04 AST 17 U/L (13-39) 03/24/23 20:04 ALT 13 U/L (7-52) 03/24/23 20:04 Alkaline Phosphatase 68 U/L (34-104) 03/24/23 20:04 Troponin I High Sens 2.9 pg/ml (0-14) 03/24/23 20:04 Total Protein 7.3 gm/dl (6.0-8.3) 03/24/23 20:04 Albumin 4.1 gm/dl (3.4-5.0) 03/24/23 20:04 Urine Color Yellow 03/24/23 22:08 Urine Appearance Clear (Clear) 03/24/23 22:08 Urine pH 6.0 (4.5-7.5) 03/24/23 22:08 Ur Specific [place] > 1.045 (1.000-1.030) H 03/24/23 22:08 Urine Protein Negative (Negative) 03/24/23 22:08 Urine Glucose (UA) Negative (Negative) 03/24/23 22:08 Urine Ketones Negative (Negative) 03/24/23 22:08 Urine Blood Negative (Negative) 03/24/23 22:08 Urine Nitrite Negative (Negative) 03/24/23 22:08 Urine Bilirubin Negative (Negative) 03/24/23 22:08 Urine Urobilinogen Negative (Negative) 03/24/23 22:08 Ur Leukocyte Esterase Negative (Negative) 03/24/23 22:08 Impressions Abdomen/Pelvis CT 03/24/23 20:23 Exam(s): CT ABDOMEN + PELVIS With Contrast IV Amt: 84 ml optiray 320 EXAM: CT Abdomen and Pelvis With Intravenous Contrast CLINICAL HISTORY: Upper abdomen pain. TECHNIQUE: Axial computed tomography images of the abdomen and pelvis with intravenous contrast. CTDI is 27.74 mGy and DLP is 1214.85 mGy-cm. Automated exposure control was utilized for the study. A dose lowering technique was utilized adhering to the principles of ALARA. CONTRAST: Patient received 84 ml optiray 320 of IV contrast COMPARISON: No relevant prior studies available. FINDINGS: Lung bases: Unremarkable. No mass. No consolidation. ABDOMEN: Liver: Unremarkable. No mass. Gallbladder and bile ducts: Cholecystectomy. No ductal dilation. Pancreas: There is an ill-defined 3.1 x 7.1 x 3.6 cm pancreatic body mass. No ductal dilation. Spleen: Unremarkable. No splenomegaly. Adrenals: Unremarkable. No mass. Kidneys and ureters: Unremarkable. No solid mass. No hydronephrosis. Stomach and bowel: Unremarkable. No obstruction. No mucosal thickening. PELVIS: Appendix: Normal appendix. Bladder: Unremarkable. No mass. Reproductive: Unremarkable as visualized. ABDOMEN and PELVIS: Intraperitoneal space: Unremarkable. No free air. No significant fluid collection. Bones/joints: There are degenerative changes of the spine. No acute fracture. No dislocation. Soft tissues: Unremarkable. Vasculature: Mild atherosclerosis. No abdominal aortic aneurysm. Lymph nodes: Unremarkable. No enlarged lymph nodes. IMPRESSION: There is an ill-defined 3.1 x 7.1 x 3.6 cm pancreatic body mass. While this could represent acute pancreatitis, underlying malignancy is highly suspected and needs to be excluded. Electronically signed by: Cecelia Sheridan MD 03/24/23 21:35 PM ECG Additional Comments: EKG - per my interpretation - study shows NSR at 61bpm, normal axis, UC=395, QRS=76, XYn=892. No acute ischemic changes Code Status & VTE Plan VTE Prophylaxis Plan VTE Prophylaxis will be ordered: Yes PG Care Time/CCT Total # of Minutes Spent Total Time Spent with Patient: Total time spent is greater than 50% in coordination of care (as documented) at patient's floor/unit and/or counseling patient: Coding Level of Care Code 11039 INT INP/OBS CARE 2/55MIN Diagnoses Mass of pancreas K86.89 Hypertension I10 Esophageal reflux K21.9 Anxiety F41.9
[2023-03-25] MEDS ORDERED: ONDANSETRON INJ 2 MG/ML 2 ML VIAL IV PRN (00:40)
[2023-03-25] MEDS ORDERED: LORazepam 0.5 MG in SYRINGE 0.25 ML IV PRN (00:40)
[2023-03-25] MEDS ORDERED: MoRPHine SULFATE 2 MG/ML CARP IV PRN (00:40)
[2023-03-25] MEDS: MoRPHine SULFATE 4 MG/ML 1 ML CARP\\VIAL IV PRN ×2 (00:58→05:15)
[2023-03-25] MEDS: POTASSIUM CHLORIDE 20 MEQ in LACTATED RINGER'S 1,000 ML IV SCH ×3 (01:14→18:10)
[2023-03-25 07:35] LABS: Hematocrit (blood only) 38.7 % (37.0-47.0); Hemoglobin 13.3 g/dl (12.0-16.0); Mean Corpuscular Hemoglobin 30.5 pg (25.0-34.0); Mean Corpuscular Hgb Conc 34.4 g/dL (32.0-36.0); Mean Corpuscular Volume 88.8 fL (80.0-100.0); Mean Platelet Volume 11.4 fL (9.4-12.4); Platelet Count 152 K/uL (130-400); RDW Coefficient of Variation 12.1 % (11.5-14.5); RDW Standard Deviation 39.3 fL (36.4-46.3); Red Blood Count 4.36 M/uL (4.20-5.40); White Blood Count 7.09 K/ul (4.8-10.8)
[2023-03-25 08:04] LABS: Albumin Level 3.6 gm/dl (3.4-5.0); BUN Creatinine Ratio 16.1 (10-20); Bilirubin Direct 0.1 mg/dl (0-0.2); Bilirubin,Total 0.5 mg/dl (0.2-1.0); Calcium 9.2 mg/dl (8.6-10.3); Chol HDL Ratio 2.5 (0-5); Creatinine Clr Calc Pharmacy 118.1 ml/min; Est GFR (African American) 122.7 ml/min; Est GFR (Non-African American) 105.9 ml/min; Magnesium 1.8 mg/dl (1.7-2.4); Phosphorus 3.6 mg/dl (2.5-4.9); Potassium 3.4 mmol/L (3.5-5.1); Total Protein 6.3 gm/dl (6.0-8.3)
[2023-03-25] MEDS: carvediloL 12.5 MG TAB PO SCH ×2 (08:08→21:39)
[2023-03-25] MEDS ORDERED: ACETAMINOPHEN 1,000 MG/100 ML VIAL IV PRN (09:20)
--- NOTE | 2023-03-25 09:41 | Gastrointestinal Consultation ---
Date of Consultation March 25, 2023 Assessment & Plan (1) Elevated amylase and lipase: (2) Recurrent upper abdominal pain: Plan 47 year old female with worsening upper abd pain and GERD over the last few months, CT imaging concerning for abnormal pancreas and question of a pancreas mass. She has normal LFTs but slight elevate of her lipase NPO Pancreas protocol CT LR 200 mL/hr Antiemetics PRN Analgesia PRN Tentative plan for EUS 6 weeks Thank you for allowing us to participate in the care of this patient. Please call with any acute changes, questions or concerns. Please see addendum below with additional recommendation from my supervising physician. Supervising Physician Co-Signing Physician Notes Attg add: I interviewed and examined pt, reveiwed chart and labs. Pt with typical pancreatic pain - epigastric, worse after eating - x 10 days. Lipase increased, Imaging shows diffuse edema of pancreas, no mass on panc protcol CT, mild juanpablo panc fluid stranding no derick dil; LFT's normal, post mary. On exam, she appears comfortable, abd is bening. Etiology of pancreatitis uncelar - chlorthalidone, ? occult PD obstruction, sludge IVFs, analagesia diet as tolerated. We will arrange outpt EUS. Please call with questions while inpt. History of Present Illness Reason for Consultation: pancreas mass Requesting Physician: Karyn Attending Physician: Tim Boss MD History of Present Illness 47 year old female with history of GERD, HTN, obesity following with weight loss clinic on phentermine who presents with abd pain. Suggests she has had UGI symptoms for a few months. This started as reflux and was controlled with Pepcid. However, worsened and she started OTC Nexium. Over the last few days, her pain and symptoms changed and were more severe. Upper abd pain, pressure with nausea but no vomiting. her GERD also worsened at this time. Denies any black or bloody stoosl or emesis. Denies ETOH or Tobacco No new medications Has lost about 30 lbs in one year with diet, exercise, calorie counting and phentermine No family history of pancreatitis No family history of pancreatic CA She had CCY years ago for an abnormal HIDA scan and abd pain Normal LFTs lipase elevation at 552 ca 19-9 pending CTAP 2022: There is an ill-defined 3.1 x 7.1 x 3.6 cm pancreatic body mass. While this could represent acute pancreatitis, underlying malignancy is highly suspected and needs to be excluded. Allergies Allergy/AdvReac Type Severity Reaction Status Date / Time erythromycin base Allergy Intermediate HIVES,COLIT Verified 03/24/23 22:15 IS amlodipine AdvReac Intermediate TIRED AND Verified 03/24/23 22:15 DISORIENTED cefuroxime AdvReac Intermediate SEVERE Verified 03/24/23 22:15 DIARRHEA hydrochlorothiazide AdvReac Intermediate IMPAIRED Verified 03/24/23 22:15 KIDNEY FUNCTION lisinopril AdvReac Intermediate FATIGUE Verified 03/24/23 22:15 losartan AdvReac Intermediate TIRED AND Verified 03/24/23 22:15 COULDN'T FUNCTION triamterene AdvReac Intermediate FATIGUE Verified 03/24/23 22:15 Home Medications Medication Instructions Recorded Confirmed Type coenzyme Q10 100 mg capsule 100 mg PO QAM 09/19/18 03/24/23 History lorazepam 0.5 mg tablet 0.5 mg PO DAILY PRN anxiety 09/19/18 03/24/23 History triamcinolone acetonide 55 mcg 1 spray intranasal PM 09/27/18 03/24/23 History nasal spray aerosol (Nasacort) desvenlafaxine 100 mg 100 mg PO PM 02/12/20 03/24/23 History tablet,extended release 24 hr cetirizine 10 mg tablet (Zyrtec) 10 mg PO HS 11/14/21 03/24/23 History vitamin B complex [B PO 04/16/22 03/17/23 History Complex-Vitamin B12] carvedilol 12.5 mg tablet 12.5 mg PO BID #180 tabs 09/08/22 03/24/23 Rx chlorthalidone 25 mg tablet 12.5 mg (1/2 x 25 mg) PO DAILY 90 09/08/22 03/24/23 Rx days #45 tabs metronidazole 1 % topical gel 1 applic topical DAILY #60 grams 09/08/22 03/24/23 Rx (Metrogel) fremanezumab-vfrm 225 mg/1.5 mL 225 mg (1.5 mL) subcut MONTHLY 30 10/14/22 Rx subcutaneous auto-injector (Ajovy) days #45 mL potassium chloride 10 mEq 20 meq (2 x 10 mEq) PO BID Other 03/12/23 03/24/23 Rx capsule,extended release #120 caps esomeprazole magnesium 40 mg 40 mg PO BID #60 caps 03/15/23 03/24/23 Rx capsule,delayed release doxycycline hyclate 50 mg capsule 50 mg PO BID #60 caps 03/17/23 03/24/23 Rx famotidine 20 mg tablet 20 mg PO QAM PRN 03/17/23 03/24/23 History HEARTBURN/INDIGESTION phentermine 37.5 mg tablet 18.75 mg PO DAILY 03/24/23 03/24/23 History ubrogepant 50 mg tablet (Ubrelvy) 50 mg PO PRN PRN Migraine Headache 03/24/23 03/24/23 History Patient History Medical History Prepatellar bursitis of left knee Right knee DJD Routine gynecological examination Metatarsalgia Chronic pain of both feet Morbid obesity Endometriosis Herniated cervical disc occasional cervicalgia; no ROM limitations per pt Acid reflux occasional HTN (hypertension) Depression Anxiety Migraines Alopecia areata Benign connective tissue neoplasm Surgical History S/P laparoscopic hysterectomy 12/08/[address] Abrhaam History of ovarian cystectomy History of esophagogastroduodenoscopy (EGD) History of laparoscopy diagnostic- x5 H/O nasal septoplasty H/O tooth extraction Hx laparoscopic cholecystectomy History of cryosurgery Cervix Hx of biopsy Vulvar Family History Father Hypertension Grandfather (Paternal) Family hx of colon cancer Grandfather (Maternal) Prostate cancer Grandmother (Maternal) Hypothyroid Mother Hypothyroid Grandmother (Paternal) Cardiac disorder Myocardial infarction Other Depression Denies family history of Colon cancer Pancreatic cancer Ovarian cancer Breast cancer Bleeding disorder Uterine cancer Social History Smoking Status: Former smoker packs per day: 0.5; Second Hand Exposure: No; Do You Dip or Chew Tobacco: No; Hx Alcohol Use: Yes Alcohol type: beer and wine Hx Substance Use: No Preferred Language: Icelandic Communication Ability: Effective Visual Impairment: No Limitations Head Porter Required: No Beliefs That Will Affect Care: None Current Living Situation: Spouse current occupational status: employed current occupation: RN Other Information That Helps Us Care for You: No Feels Safe at Home: Yes Safety Concerns: Feels Safe At This Time Assistive Devices: None Review of Systems Review of Systems: All systems reviewed & are unremarkable except as noted in HPI & below Physical Exam Constitutional: WD/WN, vitals as above Respiratory: normal respiratory effort, lungs clear to auscultation Cardiovascular: Rate/Rhythm: regular rate and regular rhythm Extremities: no edema Gastrointestinal (Abdomen): Percussion/Palpation: + abdomen tender (upper abd and left upper abd) and abdomen soft; no guarding and abdomen not rigid Skin: no rashes, warm and dry Results & Data Vital Signs (Past 12 Hours) Vital Signs Temp Pulse Pulse Resp BP Pulse Ox O2 Del Method 03/25/23 07:21 36.5 C 69 18 140/90 98 Room Air 03/25/23 00:30 36.7 C 72 18 139/90 98 Room Air 03/24/23 23:00 70 18 166/99 H 98 03/24/23 22:08 98 Room Air 03/24/23 21:52 61 Laboratory Results 03/25/23 03/24/23 03/24/23 Range/Units 07:02 22:08 20:04 WBC 7.09 (4.8-10.8) K/ul RBC 4.36 (4.20-5.40) M/uL Hgb 13.3 (12.0-16.0) g/dl Hct 38.7 (37.0-47.0) % MCV 88.8 (80.0-100.0) fL MCH 30.5 (25.0-34.0) pg MCHC 34.4 (32.0-36.0) g/dL RDW Std Deviation 39.3 (36.4-46.3) fL RDW Coeff of Ammy 12.1 (11.5-14.5) % Plt Count 152 (130-400) K/uL MPV 11.4 (9.4-12.4) fL Sodium 139 (136-145) mmol/L Potassium 3.4 L (3.5-5.1) mmol/L Chloride 105 (98-107) mmol/L Carbon Dioxide 29 (21-32) mmol/L Anion Gap 5 (3-11) BUN 10 (6-23) mg/dl Creatinine 0.62 (0.6-1.2) mg/dl Est Cr Clr Drug Dosing 118.1 ml/min Est GFR ( Amer) 122.7 ml/min Est GFR (Non-Af Amer) 105.9 ml/min BUN/Creatinine Ratio 16.1 (10-20) Glucose 79 (70-99(Fasting)) mg/dl Calcium 9.2 (8.6-10.3) mg/dl Phosphorus 3.6 (2.5-4.9) mg/dl Magnesium 1.8 (1.7-2.4) mg/dl Total Bilirubin 0.5 0.4 (0.2-1.0) mg/dl Direct Bilirubin 0.1 0.2 (0-0.2) mg/dl AST 48 H 17 (13-39) U/L ALT 35 13 (7-52) U/L Alkaline Phosphatase 61 68 (34-104) U/L Troponin I High Sens 2.9 (0-14) pg/ml Total Protein 6.3 7.3 (6.0-8.3) gm/dl Albumin 3.6 4.1 (3.4-5.0) gm/dl Triglycerides 38 (0-150) mg/dl Cholesterol 129 (0-200) mg/dl LDL Cholesterol, Calc 70 mg/dl VLDL Cholesterol, Calc 8 (0-30) mg/dl HDL Cholesterol 51 mg/dl Cholesterol/HDL Ratio 2.5 (0-5) CA 19-9 Antigen Pending Urine Color Yellow Urine Appearance Clear (Clear) Urine pH 6.0 (4.5-7.5) Ur Specific Bradford > 1.045 H (1.000-1.030) Urine Protein Negative (Negative) Urine Glucose (UA) Negative (Negative) Urine Ketones Negative (Negative) Urine Blood Negative (Negative) Urine Nitrite Negative (Negative) Urine Bilirubin Negative (Negative) Urine Urobilinogen Negative (Negative) Ur Leukocyte Esterase Negative (Negative)
[2023-03-25] MEDS ORDERED: OPTIRAY 320 500ml IV ONE (10:29)
[2023-03-25] MEDS: PANTOprazole 40 MG in SYRINGE 0 ML IV SCH (10:52)
--- NOTE | 2023-03-25 11:43 | Electrocardiogram Report ---
Test Reason : Blood Pressure : / mmHG Vent. Rate : 061 BPM Atrial Rate : 061 BPM P-R Int : 144 ms QRS Dur : 076 ms QT Int : 426 ms P-R-T Axes : 064 033 060 degrees QTc Int : 428 ms Normal sinus rhythm Poor R wave progression, consider anterior GA vs. lead placement vs. LVH Abnormal ECG When compared with ECG of 08-DEC-2021 06:25, No significant change was found Confirmed by Nikko Javed ([id number]) on 03/25/2023 11:43:15 AM Referred By: REFERRED SELF Confirmed By:Nikko Javed
--- NOTE | 2023-03-25 11:47 | CT Scan Report ---
CT pancreas 3-phase wo/w con CT DOSE: 2264.58 mGy.cm CLINICAL HISTORY: Abnormal CT. Possible pancreatic lesion. TECHNIQUE: Multiaxial CT images of the abdomen were performed both before and after the intravenous a dministration of contrast. Arterial and portal venous phase imaging was obtained to evaluate the panc reas. A dose lowering technique was utilized adhering to the principles of ALARA. COMPARISON STUDY: Abdomen and pelvis CT 03/24/2023. FINDINGS: Mild dependent changes seen at the lung bases. No acute fractures within the visualized oss eous structures. Prior cholecystectomy. The common bile duct is normal in caliber. The main pancreati c duct is also normal in caliber. No hepatic or splenic masses. The right adrenal gland and kidneys a re unremarkable. No hydronephrosis. Stable indeterminate 17 mm left adrenal gland nodule. The main po rtal vein is patent. The superior mesenteric artery is intact. The splenic vein and splenic artery ar e patent. Mild calcified plaque within the normal caliber abdominal aorta. No retroperitoneal lymphad enopathy. Mild thickening within the duodenum is likely reactive. No dilated loops of bowel to sugges t an obstruction. Peripancreatic inflammatory change/edema has progressed consistent with acute pancr eatitis. No evidence for pancreatic necrosis. The hypodense area within the body of the pancreas seen on the prior study is no longer identified. Therefore, no definite evidence for pancreatic mass. IMPRESSION: 1. Interval progression of the acute pancreatitis. No evidence for pancreatic necrosis. 2. The hypodense area within the body of the pancreas seen on the prior study is no longer identified . Therefore, no definite evidence for a pancreatic mass. Follow-up dedicated pancreatic CT in one to 2 months is recommended once the patient's pancreatitis has resolved for better characterization of t he pancreas and to exclude the less likely possibility of an underlying mass. 3. Cholecystectomy. 4. A 17 mm indeterminate left adrenal gland nodule. ACT 112: Positive. There are findings on this exam that require communication between the performing entity and the patient following Patient Test Result Information Act ([place] Act 112) guidelines. Electronically signed by: Joselo Wilson M.D. 03/25/2023 11:46 AM
--- NOTE | 2023-03-25 13:10 | Hospitalist Progress Note ---
Date of Service March 25, 2023 Assessment & Plan (1) Mass of pancreas: Plan: CT of the abdomen as above with ill-defined lesion in the pancreatic head concerning for possible mass/malignancy. CT pancreas protocol: interval progression of acute pancreatitis, previous hypodense area not sen. no evidence for definite mass - repeat CT in 1-2 months Elevated lipase and amylase on admission - CA 19-9 (pending) -GI consulted - Pancreas CT as above - okay to continue chlorathalidone from GI perspective, GI plans to do EUS outpatient, and if no findings would consider stopping at that time - increase IVF to 200 ml/hr for 24 hours - advance diet as tolerated. (2) Pancreatitis: Plan: -IVF of LR with KCL - Advance diet as tolerated - currently at clear liquids - Pain control with Tylenol, oxycodone and morphine -Zofran for nausea (3) Hypertension: Plan: -Continue Carvedilol 12.5mg po BID -Hold Chlorthalidone for now - possible contributor to pancreatitis, can resume from a GI standpoint. Will monitor BPs (4) Esophageal reflux: Plan: Chronic. -Protonix 40mg IV daily (5) Anxiety: Plan: Chronic. -Continue Ativan PRN -Desvenlafaxine not on formulary - patient brought in her own Plan Dispo: continued inpatient stay DVT proh: encourage ambulation, SCDs Admission and Anticipated Discharge Date Admission Date: March 24, 2023 Subjective patient seen sitting up in bed. Pain is well-controlled with morphine, but overall does feel like it is improving. Spoke with GI aware pancreatic mass was not seen on pancreatic CT and current diagnosis is pancreatitis. Reports many side effects to multiple blood pressure medications in the past, has tolerated chlorthalidone well besides needing potassium replacement. Review of Systems Review of Systems: All systems reviewed & are unremarkable except as noted in Subjective Physical Exam Physical Exam: General: NAD, VS as above Resp: normal respiratory effort, lungs clear to auscultation CV: RRR, no murmur, Abd: normal bowel sounds, mild epigastric tenderness, no hepatosplenomegaly Extremities: Moves all extremities, no edema Neuro: A&O x3, Skin: intact, no lesions noted Results & Data Results & Data Vital Signs (Past 12 Hours) Vital Signs Temp Pulse Resp BP Pulse Ox O2 Del Method 03/25/23 07:21 36.5 C 69 18 140/90 98 Room Air Laboratory Results CBC, chemistry reviewed PG Care Time/CCT Total # of Minutes Spent Total Time Spent with Patient: Total time spent is greater than 50% in coordination of care (as documented) at patient's floor/unit and/or counseling patient: Coding Level of Care Code 12733 SUB INP/OBS CARE 2/35MIN Diagnoses Mass of pancreas K86.89 Pancreatitis K85.90 Hypertension I10 Esophageal reflux K21.9 Anxiety F41.9
[2023-03-25] MEDS ORDERED: POLYETHYLENE (MIRALAX) 17 GM PACK PO PRN (13:21)
[2023-03-25] MEDS: LACTATED RINGER'S 1,000 ML IV SCH ×2 (18:11→23:21)
[2023-03-25] MEDS: oxyCODONE HCL IR 5 MG TAB (IMMEDIATE RELEASE) PO PRN (19:47)
[2023-03-25] MEDS ORDERED: DESVENLAFAXINE SUCCINATE 100 MG ER TABLET PO SCH (21:00)
[2023-03-25] MEDS: ACETAMINOPHEN 500 MG TAB PO PRN (21:42)
[2023-03-26] MEDS: oxyCODONE HCL IR 5 MG TAB (IMMEDIATE RELEASE) PO PRN ×2 (02:05→11:54)
[2023-03-26] MEDS: ACETAMINOPHEN 500 MG TAB PO PRN (05:46)
[2023-03-26 07:35] LABS: Basophils # (auto) 0.03 K/uL (0.00-0.20); Basophils % (auto) 0.5 %; Eosinophils # (auto) 0.07 K/uL (0.00-0.50); Eosinophils % (auto) 1.2 %; Hematocrit (blood only) 35.2 % (37.0-47.0); Hemoglobin 11.9 g/dl (12.0-16.0); Immature Granulocytes # (auto) 0.01 K/uL (0.01-0.20); Immature Granulocytes % (auto) 0.2 %; Lymphocytes % (auto) 28.1 %; Mean Corpuscular Hemoglobin 30.1 pg (25.0-34.0); Mean Corpuscular Hgb Conc 33.8 g/dL (32.0-36.0); Mean Corpuscular Volume 89.1 fL (80.0-100.0); Mean Platelet Volume 11.1 fL (9.4-12.4); Monocytes # (auto) 0.47 K/uL (0.11-0.59); Monocytes % (auto) 7.8 %; Neutrophils # (auto) 3.78 K/uL (1.40-6.50); Neutrophils % (auto) 62.2 %; Platelet Count 142 K/uL (130-400); RDW Standard Deviation 39.2 fL (36.4-46.3); Red Blood Count 3.95 M/uL (4.20-5.40); White Blood Count 6.06 K/ul (4.8-10.8)
[2023-03-26 07:55] LABS: Albumin Globulin Ratio 1.3 (0.9-2); Albumin Level 3.2 gm/dl (3.4-5.0); BUN Creatinine Ratio 10.3 (10-20); Bilirubin,Total 0.5 mg/dl (0.2-1.0); Calcium 8.8 mg/dl (8.6-10.3); Creatinine Clr Calc Pharmacy 126.3 ml/min; Est GFR (African American) 125.4 ml/min; Est GFR (Non-African American) 108.2 ml/min; Globulin 2.4 gm/dl (2.5-4.0); Potassium 3.3 mmol/L (3.5-5.1); Total Protein 5.6 gm/dl (6.0-8.3)
[2023-03-26] MEDS ORDERED: DOCUSATE SODIUM/SENNA 50/8.6MG TAB PO PRN (07:56)
[2023-03-26] MEDS: carvediloL 12.5 MG TAB PO SCH (08:15)
[2023-03-26] MEDS ORDERED: POTASSIUM CHLORIDE CRTAB 20 MEQ TABCR PO SCH (09:00)
[2023-03-26] MEDS: PANTOprazole 40 MG in SYRINGE 0 ML IV SCH (11:23)
--- NOTE | 2023-03-26 13:53 | Discharge Summary ---
Discharge Summary Date of Service March 26, 2023 Notes For Next Care Provider CA 19-9 elevated at 42 --> will likely need trended Pancreatitis - patient has outpatient EUS pending with [facility] From GI perspective okay to continue chlorthalidone Medication Changes From Visit Tramadol for pain Admission HPI Per Admitting Provider Kaley Cedeño is a 47yo female with history of GERD, HTN and Obesity presenting with ongoing abdominal pain. Patient reports she has had worsening of her reflux symptoms and post-prandial mid-abdominal pain over the last several weeks. She was taking daily Nexium as well as Pepcid and Gaviscon with minimal relief. She has been seen by her PCP on 03/15/23 with this complaint and her Nexium was increased to 40mg po BID. Acute worsening of her pain over the last three days. Her pain comes in waves. Located in the mid-abdomen and epigastric region. Non-radiating. Some associated nausea but no vomiting. She reports this AM waking with severe epigastric pain which persisted throughout the day. She had a small amount of soup for dinner then developed severe pain which prompted her to come to the ER. She did have outpatient labs performed today which revealed elevation of Lipase to 552 and Amylase to 272 As below, CT of the abdomen with an ill defined 3.1 x 7.1 x 3.6 cm pancreatic body mass concerning for acute pancreatitis vs underlying malignancy. Patient anxious and tearful in the ER having been notified of CT findings. Pain well controlled. No additional complaints at this time. She does endorse a 30# intentional weight loss over the last year with assistance [facility] No new medications. No EtOH use. No personal or family history of malignancy. ER Course: Morphine Zofran NSS x 1L Principal Dx & Hospital Course #1 = Principal Diagnosis (1) Mass of pancreas: CT of the abdomen as above with ill-defined lesion in the pancreatic head concerning for possible mass/malignancy. CT pancreas protocol: interval progression of acute pancreatitis, previous hypodense area not sen. no evidence for definite mass - repeat CT in 1-2 months Elevated lipase and amylase on admission - CA 19-9: 42 -GI consulted - Pancreas CT as above - okay to continue chlorathalidone from GI perspective, GI plans to do EUS outpatient, and if no findings would consider stopping at that time - received IVF - advance diet as tolerated --> tolerated low fat diet piror to discharge (2) Pancreatitis: -IVF of LR with KCL - Advance diet as tolerated - tolerated low fat diet prior to discharge - Pain control with Tylenol and tramadol at discharge (3) Hypertension: -Continue Carvedilol 12.5mg po BID -Resume Chlorthalidone 2/3 (4) Esophageal reflux: Chronic. Continue home PPI (5) Anxiety: Chronic. -Continue Ativan PRN -Continue home Desvenlafaxine Plan Dispo: discharge to home with outpatient GI follow up Discharge Exam General: NAD, VS as above Resp: normal respiratory effort, lungs clear to auscultation CV: RRR, no murmur, Abd: normal bowel sounds, mild epigastric tenderness, no hepatosplenomegaly Extremities: Moves all extremities, no edema Neuro: A&O x3, Updated Medication List Medication Instructions Recorded Confirmed Type coenzyme Q10 100 mg capsule 100 mg PO QAM 09/19/18 03/24/23 History lorazepam 0.5 mg tablet 0.5 mg PO DAILY PRN anxiety 09/19/18 03/24/23 History triamcinolone acetonide 55 mcg 1 spray intranasal PM 09/27/18 03/24/23 History nasal spray aerosol (Nasacort) desvenlafaxine 100 mg 100 mg PO PM 02/12/20 03/24/23 History tablet,extended release 24 hr cetirizine 10 mg tablet (Zyrtec) 10 mg PO HS 11/14/21 03/24/23 History vitamin B complex [B PO 04/16/22 03/17/23 History Complex-Vitamin B12] carvedilol 12.5 mg tablet 12.5 mg PO BID #180 tabs 09/08/22 03/24/23 Rx chlorthalidone 25 mg tablet 12.5 mg (1/2 x 25 mg) PO DAILY 90 09/08/22 03/24/23 Rx days #45 tabs metronidazole 1 % topical gel 1 applic topical DAILY #60 grams 09/08/22 03/24/23 Rx (Metrogel) fremanezumab-vfrm 225 mg/1.5 mL 225 mg (1.5 mL) subcut MONTHLY 30 10/14/22 03/24/23 Rx subcutaneous auto-injector (Ajovy) days #45 mL potassium chloride 10 mEq 20 meq (2 x 10 mEq) PO BID Other 03/12/23 03/24/23 Rx capsule,extended release #120 caps esomeprazole magnesium 40 mg 40 mg PO BID #60 caps 03/15/23 03/24/23 Rx capsule,delayed release doxycycline hyclate 50 mg capsule 50 mg PO BID #60 caps 03/17/23 03/24/23 Rx famotidine 20 mg tablet 20 mg PO QAM PRN 03/17/23 03/24/23 History HEARTBURN/INDIGESTION phentermine 37.5 mg tablet 18.75 mg PO DAILY 03/24/23 03/24/23 History ubrogepant 50 mg tablet (Ubrelvy) 50 mg PO PRN PRN Migraine Headache 03/24/23 03/24/23 History acetaminophen 500 mg tablet 1,000 mg (2 x 500 mg) PO Q8H PRN 03/26/23 Rx (Tylenol Extra Strength) Pain 30 days #10 tabs tramadol 50 mg tablet 50 mg PO Q6H PRN pain #6 tabs 03/26/23 Rx Hospital Stay Data Consultations 03/24/23 22:06 ED Decision to Admit Stat 03/24/23 22:47 Consult Gastroenterology Routine Diagnostic Imagining Performed 03/24/23 20:23 CT abd pelvis IV con only Stat 03/25/23 08:50 CT pancreas 3-phase wo/w con Routine Pending Results Patient Have Any Pending Studies at Discharge: No Discharge Instructions Given to Patient (Per Discharging Provider) Ms. Cedeño, You were hospitalized after having abdominal pain, with a concern for a pancreatic mass, but was not seen on repeat CT scan. You were treated for acute pancreatitis with IV fluid resuscitation and pain medication. It is important to continue a low residue, low fat diet. At least for the next week, but let your pain dictate your ability to advance your diet. It is also very important that you stay hydrated - even more than your baseline. I have attached information about a low fat diet. Pain control with tylenol and prn Tramadol sent to your pharmacy. Do not take the tramadol at the same time as your Ativan. Do not drive while taking Tramadol. You will need follow up with GI for the EUS study and they can follow up on your CA 19-9. As we discussed, you are able to restart chlorthalidone tomorrow, 2/3. If you GI symptoms worsen, please contact the GI providers. if your pain is uncontrollable or you have chest pain please return to the ER. It was my pleasure taking care of you, Anayeli Cordova PA-C Total Time Total Time Spent Total Time Spent (In Minutes): Time spend day of discharge 35 minutes including direct patient care, medication reconciliation, documentation, review of labs and images, and coordination of care. Coding Level of Care Code 70831 INP/OBS DISCH >30 MIN Diagnoses Mass of pancreas K86.89 Pancreatitis K85.90 Hypertension I10 Esophageal reflux K21.9 Anxiety F41.9
[2023-03-27] MEDS ORDERED: CHLORTHALIDONE 25 MG TAB PO SCH (09:00)
== END 2023-03-26 15:40 | disposition home or self-care (01) | DRG 440 ==
LOC: SUATTDRO → ED 19:03 → SUATTDRO 22:47 → 3N 22:47